=== PATIENT | male | born 2000 | race Caucasian/White ===

== ENCOUNTER 2020-05-11 00:23 | Observation (INO) ==
[2020-05-11] MEDS ORDERED: *HR* LORazepam 2 MG/ML VIAL IM STA (00:45)
[2020-05-11] MEDS ORDERED: Famotidine 20 MG TABLET PO ONE (01:47)
[2020-05-11] MEDS ORDERED: Piperacillin/Tazobactam 3.375 GM in Water for inj. (sterile) 20 ML IVP ONE (02:06)
[2020-05-11 02:44] LABS: Basophils % 0.4 %; Eosinophils % 0.1 %; Hematocrit 43.1 % (37.5-50.1); Hemoglobin 14.8 g/dL (12.9-16.9); Immature Granulocytes % 0.2 % (0-4); Lymphocytes % 10.6 %; Mean Corpuscular HGB Conc 34.3 g/dL (31.6-35.5); Mean Corpuscular Hemoglobin 31.8 pg (28.0-33.3); Mean Corpuscular Volume 92.5 fL (83.0-100.0); Mean Platelet Volume 10.4 fL (9.4-12.4); Monocytes # 0.7 K/mcL (0.0-1.3); Monocytes % 7.9 %; Neutrophils # 7.3 K/mcL (1.6-8.9); Platelet Count 273 K/mcL (140-400); Red Blood Count 4.66 M/mcL (4.19-5.50); Red Cell Distribution Width 12.1 % (11.5-14.5); Segmented Neutrophils % 80.8 %; White Blood Count 9.1 K/mcL (4.3-11.1)
[2020-05-11 02:59] LABS: Alanine Aminotransferase 19 Units/L (7-52); Albumin 5.4 g/dL (3.5-5.7); Alkaline Phosphatase 72 Units/L (34-104); Aspartate Amino Transferase 35 Units/L (13-39); BUN/Creatinine Ratio 16 (6-26); Bilirubin,Direct 0.1 mg/dL (0.0-0.2); Bilirubin,Indirect 0.4 mg/dL (0.0-1.0); Bilirubin,Total 0.5 mg/dL (0.3-1.0); Blood Urea Nitrogen 21 mg/dL (6-20); Carbon Dioxide 25 mEq/L (23-29); Chloride 106 mEq/L (98-107); Globulin 2.7 g/dL (2.4-3.5); Glucose 129 mg/dL (70-105); Lipase 30 Units/L (11-82); Osmolality,Calculated 311 (280-300); Potassium 4.1 mEq/L (3.5-5.1); Sodium 148 mEq/L (136-145); Total Protein 8.1 g/dL (6.4-8.9); eGFR For African Americans > 60 (> 60); eGFR For Non-African Americans > 60 (> 60)
[2020-05-11] MEDS ORDERED: Ziprasidone 10 MG in Water for inj. (sterile) 0.5 ML IM ONE (04:51)
[2020-05-11] MEDS ORDERED: 0.9 % Sodium Chloride 1,000 ML IVC ONE (05:39)
[2020-05-11] MEDS ORDERED: Naloxone 0.4 MG/ML INJ IVP PRN (09:57)
[2020-05-11] MEDS ORDERED: Acetaminophen 325 MG TABLET PO PRN (09:57)
[2020-05-11] MEDS ORDERED: Ringers Solution, Lactated 1,000 ML IVC SCH (10:00)
[2020-05-11] MEDS ORDERED: Cefepime HCl 2,000 MG in 0.9 % Sodium Chloride Mini Bag 100 ML IVPB SCH (10:00)
[2020-05-11] MEDS ORDERED: Ziprasidone 10 MG in Water for inj. (sterile) 0.5 ML IM PRN (10:01)
[2020-05-11 15:38] VITALS: BP 94/60
[2020-05-11] MEDS ORDERED: Pantoprazole 40 MG VIAL IVP SCH (18:00)
[2020-05-11] MEDS ORDERED: Ondansetron 4 MG/2 ML VIAL IVP SCH (18:00)
[2020-05-11] MEDS ORDERED: Amoxicillin 500 MG CAPSULE PO SCH (21:00)
[2020-05-12] MEDS ORDERED: *HR* Enoxaparin 40 MG/0.4 ML SYRINGE SQ SCH (06:00)
== END 2020-05-11 17:33 | disposition home or self-care (01) ==
LOC: EMEROOARM 00:23 → 3BNU 00:23
PROVIDERS: ADMIT Internal Medicine; ATTEND Internal Medicine